=== PATIENT | male | born 1985 | race Caucasian/White ===

== ENCOUNTER 2018-03-20 21:09 | Emergency (ER) | payer OTHER ==
[~2018-03-20 21:09] MED LIST: ALEVE; AZI250 PO; CYCL10TA29 PO; LEVE-14 PO; MELO-205 PO; MOTRIN; NO RTN MEDS; NOR5/325 PO; PHEN120S18 PO
--- NOTE | 2018-03-20 21:19 | ER Report ---
History and Physical Time Seen By MD: 21:19 HPI/ROS CHIEF COMPLAINT: Seizure HISTORY OF PRESENT ILLNESS: Pt here for evaluation of seizure. Pt was at work and bend over to work on a car and was told he fell to the ground and had seizure. Pt was shaking for a minute then was unresponsive for 10-15. Ems was called and on there arrival pt was awake. pt refused transport by ambulance but was driven to ed by private vehicle. Pt states his muscles feel sore. Pt has a abrasion to his right elbow and bit his tongue on the left. Pt states he feels "foggy". no weakness. Pt has had 3 other seizures in the last 13 years. First was at age 19. Had another one after a night of studying and taking adderral and most recent was in 2015 when he was placed on cyclobenzapine for back spasms. Pt was supposed to follow up with a neurologist in March 2016 after the third seizure but did not. Pt denies any recent illness. no new medications. no fe vers or chills. no neck or back pain. no fevers. REVIEW OF SYSTEMS: Constitutional: No fever, no chills. Eyes: No discharge. ENT: No sore throat, bit tongue Cardiovascular: No chest pain, no palpitations. Respiratory: No cough, no shortness of breath. Gastrointestinal: No abdominal pain, no vomiting. Genitourinary: No hematuria. Musculoskeletal: No back pain. Skin: No rashes, + abrasion on right elbow Neurological: No headache, + seizure Allergies: Coded Allergies: No Known Drug Allergies (Verified , 03/20/18) Home Meds Active Scripts Cephalexin 500 Mg Tab (KEFLEX 500 MG TAB) 500 Mg Tablet, 500 MG PO TID, #21 TAB Prov:YOMAIRA VALENCIA DO 03/20/18 Levetiracetam (LEVETIRACETAM) 500 Mg Tablet, 500 MG PO BID, #60 TAB 2 Refills Prov:YOMAIRA VALENCIA DO 03/20/18 Discontinued Reported Medications Cyclobenzaprine Hcl (CYCLOBENZAPRINE HCL) 10 Mg Tablet, 10 MG PO TID PRN for PAIN, #9 TAB 12/14/15 Meloxicam (MELOXICAM) 7.5 Mg Tablet, 15 MG PO BID PRN for PAIN 12/14/15 Discontinued Scripts Levetiracetam (KEPPRA) 500 Mg Tablet, 500 MG PO BID, #60 TAB 3 Refills Prov:MARCO ANTONIO GARCIA DO 12/14/15 Past Medical/Surgical History pmhx: seizure Pshx: neg Reviewed Nurses Notes: Yes Hx Smoking: No Smoking Status: Never Smoker Hx Substance Use Disorder: No Hx Alcohol Use: No Constitutional Vital Sign - Last 24 Hours 03/20/18 03/20/18 03/20/18 03/20/18 21:09 21:14 21:15 21:17 Temp 98.0 Pulse ??? 95 Resp 20 B/P (MAP) 127/86 (100) 127/79 (95) 127/79 Pulse Ox 97 O2 Delivery Room Air 03/20/18 03/20/18 03/20/18 03/20/18 21:24 21:30 21:39 21:45 Pulse 101 104 Resp 10 21 B/P (MAP) 122/66 (84) 107/96 (100) Pulse Ox 96 94 03/20/18 03/20/18 03/20/18 03/20/18 21:54 22:00 22:15 22:24 Pulse 95 85 Resp 24 6 B/P (MAP) 118/81 (93) 119/76 (90) Pulse Ox 97 03/20/18 03/20/18 03/20/18 03/20/18 22:30 22:39 22:45 22:54 Pulse 89 88 Resp 10 15 B/P (MAP) 116/60 (78) 130/71 (90) 03/20/18 03/20/18 03/20/18 03/20/18 22:59 23:00 23:14 23:15 Pulse 84 89 Resp 28 14 B/P (MAP) 119/62 (81) 126/78 (94) Physical Exam General Appearance: The patient is alert, has no immediate need for airway protection and no signs of toxicity. Eyes: Pupils equal and round no pallor or injection, EOMI ENT: no pharyngeal erythema or exudates, Mucous membranes are moist, TM are nl b/l, neg hemotympanum, bruise to left side of tongue Respiratory: There are no retractions, lungs are clear to auscultation. Cardiovascular: Regular rate and rhythm. pulses are equal and symmetrical Gastrointestinal: Abdomen is soft and non tender, no masses, bowel sounds normal, no guarding, no rigidity or rebound Neurological: Cranial nerves II-XII grossly intact, no sensory or motor loss Skin: Warm and dry, no rashes, + 2cm abrasion to left knee Musculoskeletal: Neck is supple non tender, no vertebral tenderness Extremities are nontender, non swollen and have full range of motion. DIFFERENTIAL DIAGNOSIS: After history and physical exam differential diagnosis was considered for electrolyte abnl, drug alcohol, seizure d/o Medical Decision Making Data Points Result Diagram: 03/20/18211703/20/182117 Laboratory Hematology Test 03/20/18 21:18 Red Blood Count 5.37 M/uL (4.00-5.60) Mean Corpuscular Volume 90.8 fL (80.0-96.0) Mean Corpuscular Hemoglobin 31.7 pg (26.0-33.0) Mean Corpuscular Hemoglobin Concent 34.9 g/dL (32.0-36.0) Red Cell Distribution Width 12.2 % (11.5-14.5) Mean Platelet Volume 8.2 fL (7.2-11.1) Neutrophils (%) (Auto) 57.6 % (39.4-72.5) Lymphocytes (%) (Auto) 30.1 % (17.6-49.6) Monocytes (%) (Auto) 6.9 % (4.1-12.4) Eosinophils (%) (Auto) 2.7 % (0.4-6.7) Basophils (%) (Auto) 2.7 % (0.3-1.4) Nucleated RBC Relative Count (auto) 0.0 /100WBC Neutrophils # (Auto) 3.9 K/uL (2.0-7.4) Lymphocytes # (Auto) 2.0 K/uL (1.3-3.6) Monocytes # (Auto) 0.5 K/uL (0.3-1.0) Eosinophils # (Auto) 0.2 K/uL (0.0-0.5) Basophils # (Auto) 0.2 K/uL (0.0-0.1) Nucleated RBC Absolute Count (auto) 0.00 K/uL Sodium Level 141 mmol/L (137-145) Potassium Level 3.6 mmol/L (3.5-5.0) Chloride Level 106 mmol/L (98-107) Carbon Dioxide Level 19 mmol/L (22-30) Blood Urea Nitrogen 12 mg/dl (9-21) Creatinine 1.30 mg/dl (0.66-1.25) Glomerular Filtration Rate Calc > 60.0 Random Glucose 74 mg/dl (75-110) Calcium Level 9.8 mg/dl (8.4-10.2) Total Bilirubin 1.6 mg/dl (0.2-1.3) Aspartate Amino Transf (AST/SGOT) 48 U/L (0-35) Alanine Aminotransferase (ALT/SGPT) 37 U/L (0-56) Alkaline Phosphatase 60 U/L (0-126) Total Protein 7.7 g/dl (6.3-8.2) Albumin 4.7 g/dl (3.5-5.0) Serum Alcohol < 10 mg/dl Chemistry Test 03/20/18 21:18 White Blood Count 6.8 k/uL (4.5-11.0) Red Blood Count 5.37 M/uL (4.00-5.60) Hemoglobin 17.0 g/dL (14.0-18.0) Hematocrit 48.8 % (42.0-52.0) Mean Corpuscular Volume 90.8 fL (80.0-96.0) Mean Corpuscular Hemoglobin 31.7 pg (26.0-33.0) Mean Corpuscular Hemoglobin Concent 34.9 g/dL (32.0-36.0) Red Cell Distribution Width 12.2 % (11.5-14.5) Platelet Count 205 K/uL (150-450) Mean Platelet Volume 8.2 fL (7.2-11.1) Neutrophils (%) (Auto) 57.6 % (39.4-72.5) Lymphocytes (%) (Auto) 30.1 % (17.6-49.6) Monocytes (%) (Auto) 6.9 % (4.1-12.4) Eosinophils (%) (Auto) 2.7 % (0.4-6.7) Basophils (%) (Auto) 2.7 % (0.3-1.4) Nucleated RBC Relative Count (auto) 0.0 /100WBC Neutrophils # (Auto) 3.9 K/uL (2.0-7.4) Lymphocytes # (Auto) 2.0 K/uL (1.3-3.6) Monocytes # (Auto) 0.5 K/uL (0.3-1.0) Eosinophils # (Auto) 0.2 K/uL (0.0-0.5) Basophils # (Auto) 0.2 K/uL (0.0-0.1) Nucleated RBC Absolute Count (auto) 0.00 K/uL Glomerular Filtration Rate Calc > 60.0 Calcium Level 9.8 mg/dl (8.4-10.2) Total Bilirubin 1.6 mg/dl (0.2-1.3) Aspartate Amino Transf (AST/SGOT) 48 U/L (0-35) Alanine Aminotransferase (ALT/SGPT) 37 U/L (0-56) Alkaline Phosphatase 60 U/L (0-126) Total Protein 7.7 g/dl (6.3-8.2) Albumin 4.7 g/dl (3.5-5.0) Serum Alcohol < 10 mg/dl Toxicology Test 03/20/18 21:18 Serum Alcohol < 10 mg/dl EKG/Imaging Imaging no fb evident on imaging ED Course/Re-evaluation Clinical Indication for ER IV: Hydration, IV Access ED Course PT not sure of tetnus status. Will give tetnus, check labs and call neuro. Pt prefers [facility] if able. 03/20/2018 9:39:20 pm After cleaning the right elbow abrasion there is a small puncture wound 1mm, will image to rule out any fb since works in [employer] . Wound irrigated and tetnus given. 03/20/2018 10:15:50 pm Spoke with pt about pros and cons of placing one suture to close the puncture since it is oozing. However since it is a puncture wound prefer to irrigate further and leave open due to risk of closing in infections. 03/20/2018 10:27:[address] Barton, neurology at [facility], would like me to give one gram IV of Keppra now and then send home on keppra 500mg twice a day. States pt should call his office by tomorrow noon [phone] Spoke with pt and after reviewing his old records he was placed on Keppra in 2016. Pt statse he filled it but never took it due to he felt the seizure was due to the muscle relaxant and thought he did not need it. pt states he will follow up this time. Decision to Disposition Date: Mar 20, 2018 Decision to Disposition Time: 23:29 Depart Departure Latest Vital Signs Vital Signs Date Time Temp Pulse Resp B/P (MAP) Pulse Ox O2 Delivery O2 Flow Rate FiO2 03/20/18 23:15 126/78 (94) 03/20/18 23:14 89 14 03/20/18 21:54 97 03/20/18 21:17 98.0 Room Air Impression: Primary Impression: Seizure Additional Impression: Puncture wound of right elbow without foreign body Condition: Improved Disposition: HOME OR SELF-CARE New Scripts Cephalexin 500 Mg Tab (KEFLEX 500 MG TAB) 500 Mg Tablet 500 MG PO TID, #21 TAB Prov: YOMAIRA VALENCIA DO 03/20/18 Levetiracetam (LEVETIRACETAM) 500 Mg Tablet 500 MG PO BID, #60 TAB 2 Refills Prov: YOMAIRA VALENCIA DO 03/20/18 Patient Instructions: Puncture Wound (ED), Recurrent Seizures in Adults (GEN) Additional Instructions: It is important that you follow up with Neurology, , for your seizures. I spoke with Dr. Ramo Barton who would like for you to call his office tomorrow to make an appointment. He wanted me to start you on Keppra 500mg twice a day. I have sent a script to [facility]. Ramo Barton office number is [phone] I have also started you on an antibiotic for your elbow puncture wound. This is only for one week. This will help prevent an infection in your elbow joint from any possible bacteria . We also gave you a tetnus shot. Return for any concerns. Problem Qualifiers Additional Impression: Puncture wound of right elbow without foreign body Encounter type: initial encounter Qualified Codes: S51.031A - Puncture wound without foreign body of right elbow, initial encounter YOMAIRA VALENCIA DO Mar 20, 2018 21:19
[2018-03-20] MEDS ORDERED: NS(*) 0.9% 1000 ML BAG 1,000 ML IV ONE (21:25)
[2018-03-20] MEDS ORDERED: DIPHTH/TETANUS/ACEL. PERTUSSIS IM ONLY ONE (21:30)
[2018-03-20 21:34] LABS: PLATELET COUNT, AUTOMATED 205 K/uL (150-450)
--- NOTE | 2018-03-20 22:14 | RADIOLOGY IMAGING REPORT ---
FACILITY: [facility] PATIENT NAME: Stiven Winston : 1985 MR: [id number] V: [id number] EXAM DATE: ORDERING PHYSICIAN: YOMAIRA VALENCIA TECHNOLOGIST: [place] [facility] [place]iven [place] : 1985 Visit/Account:[id number] Date of Sevice: 03/20/2018 EXAMINATION: Right elbow radiographs 2 views HISTORY: Foreign body. COMPARISON: None. FINDINGS: Two views of the right elbow are obtained. Bones: Negative. Joint spaces: Negative. Hardware: There is an IV catheter at the antecubital fossa. Alignment: Normal. Soft tissues: There is soft tissue laceration and swelling along the posterior elbow. No radiodense foreign body is identified in this region. Effusion: None. IMPRESSION: Soft tissue swelling and laceration along the posterior elbow. No radiodense foreign body is identif ied in this region. Report Dictated By: Codey Cullen MD at 03/20/2018 10:10 PM Report E-Signed By: Codey Cullen MD at 03/20/2018 10:12 PM WSN:[id number]
[2018-03-20] MEDS ORDERED: levETIRAcetam(*)500 MG/5 ML VI 1,000 MG in NS(*) 0.9% 100 ML BAG 100 ML IVPB ONE (22:20)
[2018-03-20] MEDS ORDERED: LEVE500T73 PO (22:37)
[2018-03-20] MEDS ORDERED: CEPH500T7 PO (22:40)
[2018-03-20] MEDS ORDERED: CEPHALEXIN 500 MG CAP TH 2 CAP/BOTTLE PO ONE (22:50)
[2018-03-20] MEDS ORDERED: levETIRAcetam 500 MG TAB PO ONE (22:50)
[2018-03-20] MEDS ORDERED: BACITRACIN OINT 0.9 GM PKT TP ONE (22:50)
[2018-03-20] MEDS ORDERED: ceFAZolin 1 GM VIAL IVP ONE (22:50)
[2018-03-20 23:15] VITALS: BP 126/78
== END 2018-03-20 23:27 | disposition home or self-care (01) ==
LOC: ER 21:37
DX: R56.9 Unspecified convulsions (principal); S51.031A Puncture wound without foreign body of right elbow, initial encounter
CPT/HCPCS: 73070; 80320; 85025; 90471; 90715; 96365; 96375; 99284; J0690; J1953; J7030; J7050; 82040; 82247; 82310; 82374; 82435; 82565; 82947; 84075; 84132; 84155; 84295; 84450; 84460; 84520

== ENCOUNTER → 2018-06-26 | Outpatient (CLI) | payer OTHER ==
[~2018-06-26] MED LIST changes: +CEPH500T7 PO; +LEVE500T73 PO
== END ==
LOC: LAB 15:39
PROVIDERS: ATTEND Anesthesiology
DX: Z01.812 Encounter for preprocedural laboratory examination (principal); Z86.69 Personal history of other diseases of the nervous system and sense organs
CPT/HCPCS: 36415; 80177